=== PATIENT | female | born 1950 | race Caucasian/White ===

== ENCOUNTER 2016-11-29 18:40 | Emergency (ER) | payer MEDICARE ==
--- NOTE | ~2016-11-29 | EKG ---
PATIENT: ERIC VICK UNIT #: [id number] Ventricular Rate: 52 BPM Atrial Rate: 52 BPM P-R Interval: 144 ms QRS Duration: 88 ms Q-T Interval: 426 ms QTC Calculation(Bezet): 396 ms P [place]: 42 degrees Calculated R [place]: 17 degrees Calculated T [place]: 22 degrees Diagnosis Line: Sinus bradycardia Diagnosis Line: Otherwise normal ECG Diagnosis Line: When compared with ECG of 07-MAR-2016 14:11, Diagnosis Line: No significant change was found Diagnosis Line: Confirmed by TOMAS CLAYTON MD ([id number]) on 11/29/2016 Diagnosis Line: 10:49:57 PM INTERPRETING MD: MATILDE TRAVIS
--- NOTE | ~2016-11-29 | CR72 ---
[facility] A Service of [facility] RADIOLOGY TEXT RESULTS PATIENT: ERIC VICK LOCATION: [facility] : 48 UNIT #: [id number] AGE: [address]: Sharita Butler SEX: F ORDER DR: [id number] [facility] [address] [place], [place] [address] [id number] E MR#: [id number] Acc #: [id number] NAME: ERIC VICK. : 1950 SEX: F STUDY DATE/TIME: 11/29/2016 18:59 UNIT: [facility] ROOM: STUDY DESCRIPTION: CR Chest Single View Portable Attending Physician: Sharita Butler Pa-C Ordering Physician: Cesar Cartagena M.D. Primary Care Physician: Tootie Hannah M.D. MEDICAL IMAGING REPORT This report is preliminary unless electronic signature is present EXAM Single view chest, portable. HISTORY History of asthma, bronchitis, short of air since 11/29/2016. History of left lung cancer. COMMENT Single frontal portable view chest timed 18:59, 11/29/2016. COMPARISON Compared to 03/11/2016. Comparison also made to 03/09/2016. FINDINGS The patient has moderate cardiac silhouette enlargement which is increased from previous. There are areas of apparent bilateral parenchymal scarring and underlying chronic lung disease. There is probably some worsening in interstitial markings since prior and this raises concern for superimposed interstitial edema possibly in the setting of mild volume overload. It is apparent on the film from 03/11/2016, that the patient was in congestive failure with pleural effusions at that time. Clinical correlation and follow up is therefore suggested. If more information is needed with respect to assess the patient's lung cancer, follow-up CT chest would be indicated. IMPRESSION 1. There is moderate globular cardiac silhouette enlargement and there are changes consistent with underlying chronic lung disease. Comparison is made back to multiple plain films from last March and on review of those films, it appears that there is some increased interstitial markings from baseline, and it is apparent that the patient has previously been in congestive failure. Please correlate for any clinical concern. The patient is currently experiencing mild STS. [facility] A Service of [facility] RADIOLOGY TEXT RESULTS PATIENT: ERIC VICK [id number] 48 UNIT #: [id number] AGE: [address]: Sharita Butler SEX: F ORDER DR: volume overload given the increased interstitial markings. Atypical infectious disease can result in a similar appearance. Clinical correlation and follow up is suggested. No pneumothorax. No obvious pleural effusion at this time. 2. If restaging of the patient's lung cancer is indicated, would recommend the patient undergo follow-up chest CT. Dictated by... Natalia Shearer M.D. THIS IS AN ELECTRONICALLY VERIFIED REPORT Natalia Shearer M.D. at 11/29/2016 10:55 PM BARAK/hattie TD: 11/29/2016 21:49 JOB #: [id number] MEDICAL IMAGING REPORT Page 1 of 1 COPY
[~2016-11-29 18:40] MED LIST: ADVAIR 100-501 EACH IH; ALBUTEROL17 GM INH; ALENDRONATE SOD70 M1 PO; ALPRAZOLAM PO; ASPIRIN PO; BACLOFEN10 MG PO; BENTYL20 M1 PO; BONIVA150 MG PO; BREO ELLIPTA I1 EACH IH; BUSPAR PO; BUSPIRONE HCL10 M1 PO; BUSPIRONE HCL10 MG PO; CHOLESTEROL MED PO; CIPRO PO; CITRACAL PLUS T1 TAB PO; CLOPIDOGREL75 MG PO; CRESTOR PO; CYANOCOBALAM1000 MCG PO; DESYREL100 MG PO; DIFLUCAN PO; DUONEB 2.5-0.5 M3 ML; ESCITALOPRAM OX20 MG PO; FERRO-TIME325 MG PO; FERROUS GL325 ( 37.5 PO; FLAGYL PO; FLEXERIL PO; FLEXERIL10 M1 PO; FLOMAX0.4 M1 PO; FOSAMAX70 MG PO; GABAPENTIN300 M2 PO; GLUCOPHAGE XR500 MG PO; GLUCOPHAGE500 M1 PO; HYDROCHLOROTHIA25 MG PO; HYDROCODONE/APA1 T16 PO; IMDUR PO; IMDUR-ER30 M1 DOB; IMDUR-ER30 M1 PO; IMDUR-ER30 MG PO; LEVAQUIN PO; LEVAQUIN750 MG PO; LEVOTHYROXINE137 MCG PO; LEVOXYL0.137 MG DOB; LEVOXYL0.137 MG PO; LEXAPRO PO; LEXAPRO20 MG PO; LIORESAL10 MG PO; LIPITOR PO; LISINOPRIL PO; LISINOPRIL10 MG PO; LISINOPRIL20 MG PO; LISINOPRIL30 MG PO; LOMOTIL TABLET1 TAB PO; LOPRESSOR PO; LORTAB 10-3251 EACH PO; LORTAB 10/325 PO; LORTAB 7.5-5001 TAB PO; MACROBID 100 M100 MG PO; MEDROL DOSEPAK4 MG PO; MELATONIN3 M1 PO; METHYLPREDNISOLONE; MOTRIN600 M2 PO; MULTI VITAMIN1 EACH PO; MULTI-VITAMIN1 EAC1 PO; MUPIROCIN0.9 GM EXT; N; NAPROXEN PO; NEURONTIN800 MG PO; NICODERM CQ1 EACH TOP; NITROGYLCERIN SUBLINGUAL; NITROSTAT0.4 MG SL; NORCO 10/325 TA1 TAB PO; NORVASC10 MG PO; OXYGEN; PERCOCET5/325 PO; PHENERGAN PO; PLAVIX PO; PREDNISONE PO; PROTONIX PO; SYNTHROID PO; SYNTHROID137 MCG PO; TOPROL XL 50 MG50 MG PO; TOPROL XL PO; TOPROL XL50 MG PO; TRAZODONE HCL100 MG PO; TRICOR PO; TYLOX1 CAP 5/50 PO; VITAMIN B122500 MCG PO; ZOCOR PO; ZOFRAN ODT4 MG PO
[2016-11-29 19:06] LABS: BASOPHIL# 0.2 X10e3 (0-0.3); BASOPHIL% 1.6 % (0-2.5); EOSINOPHIL# 0.2 X10e3 (0-0.7); HEMATOCRIT 31.7 % (35.0-45.0); HEMOGLOBIN 9.6 gm/dL (12.0-16.0); LYMPHOCYTE# 2.2 X10e3 (1.0-3.5); LYMPHOCYTE% 20.6 % (17.0-45.0); MEAN CELL VOLUME 83.3 FL (83-96); MEAN CORPUSCULAR HEMOGLOBIN 25.3 PG (28-34); MEAN CORPUSCULAR HGB CONC 30.4 g/dL (30-36); MEAN PLATELET VOLUME 7.6 FL (6.5-11.5); MONOCYTE# 0.8 X10e3 (0-1.0); MONOCYTE% 7.7 % (3.0-12.0); NEUTROPHIL# 7.3 X10e3 (1.5-7.1); NEUTROPHIL% 68.1 % (40-75); PLATELET COUNT 360 X10e3 (140-420); RED BLOOD COUNT 3.81 X10e (3.90-5.30); RED CELL DISTRIBUTION WIDTH 17.1 % (11.0-15.5); WHITE BLOOD COUNT 10.8 X10e3 (4.0-10.5)
[2016-11-29 19:08] LABS: DIFF IND NO
[2016-11-29 19:16] LABS: POC - CKMB 2.3 ng/mL (0.0-7.9); POC - TROPONIN <0.05 ng/mL (<=0.05)
[2016-11-29 19:27] LABS: ALBUMIN SERUM 3.5 g/dL (3.5-5.0); BILIRUBIN, DIRECT 0.2 mg/dL (0.0-0.2); BILIRUBIN,INDIRECT 0.8 mg/dL (0.0-0.9); BUN/CREATININE RATIO 26.66; CALCIUM SERUM 10.1 mg/dL (8.4-10.2); CREATININE SERUM 0.6 mg/dL (0.6-1.4); GLOM FILT RATE Estimated 93.7 mL/min (>60); PROTEIN TOTAL SERUM 6.3 g/dL (6.0-8.3)
== END 2016-11-29 21:00 | disposition home or self-care (01) ==
LOC: CED 18:40
PROVIDERS: Physician Assistant
DX: J18.9 Pneumonia, unspecified organism (principal); J44.9 Chronic obstructive pulmonary disease, unspecified; I10 Essential (primary) hypertension; Z85.118 Personal history of other malignant neoplasm of bronchus and lung; Z79.899 Other long term (current) drug therapy; Z87.891 Personal history of nicotine dependence
CPT/HCPCS: 36415; 71010; 80048; 80076; 82553; 84484; 85025; 93005; 94640; 96365; 96375; 99284; J0696; J2930

== ENCOUNTER 2017-01-22 16:01 | Emergency (ER) | payer MEDICARE ==
--- NOTE | ~2017-01-22 | CR72 ---
[facility] A Service of [facility] RADIOLOGY TEXT RESULTS PATIENT: ERIC VICK LOCATION: [facility] : 48 UNIT #: [id number] AGE: [address]: Katherine Bruno MD SEX: F ORDER DR: [id number] [facility] [address] [place], [place] [address] [id number] E MR#: [id number] Acc #: [id number] NAME: ERIC VICK. : 1950 SEX: F STUDY DATE/TIME: 01/22/2017 16:49 UNIT: [facility] ROOM: STUDY DESCRIPTION: CR Chest Single View Portable Attending Physician: Katherine Bruno M.D. Ordering Physician: Cody Feng D.O. Primary Care Physician: Tootie Hannah M.D. MEDICAL IMAGING REPORT This report is preliminary unless electronic signature is present EXAM Portable chest INDICATIONS Shortness of breath today. COMPARISON 11/29/2016 FINDINGS Stable chronic interstitial opacities. Heart size stable. No definite acute infiltrate. IMPRESSION Stable chronic-appearing interstitial opacities. No definite acute infiltrate. Dictated by... César Mcguire M.D. THIS IS AN ELECTRONICALLY VERIFIED REPORT César Mcguire M.D. at 01/23/2017 10:06 AM ARS/shaan TD: 01/23/2017 04:17 JOB #: [id number] MEDICAL IMAGING REPORT Page 1 of 1 COPY
--- NOTE | ~2017-01-22 | EKG ---
PATIENT: ERIC VICK UNIT #: [id number] Ventricular Rate: 71 BPM Atrial Rate: 71 BPM P-R Interval: 144 ms QRS Duration: 82 ms Q-T Interval: 354 ms QTC Calculation(Bezet): 384 ms P [place]: 46 degrees Calculated R [place]: 19 degrees Calculated T [place]: 1 degrees Diagnosis Line: Normal sinus rhythm with sinus arrhythmia Diagnosis Line: Early R Wave Transition Diagnosis Line: Borderline ECG Diagnosis Line: When compared with ECG of 29-NOV-2016 18:29, Diagnosis Line: No significant change was found Diagnosis Line: Confirmed by RUPINDER VELASCO MD ([id number]) on Diagnosis Line: 01/22/2017 10:22:59 PM INTERPRETING MD: KAREN
--- NOTE | ~2017-01-22 | CT71 ---
[facility] A Service [facility] RADIOLOGY TEXT RESULTS PATIENT: ERIC VICK LOCATION: [facility] : 48 UNIT #: [id number] AGE: [address]: Katherine Bruno MD SEX: F ORDER DR: [id number] [place] [id number] [facility] [place], [place] [address] [id number] E MR#: [id number] Acc #: [id number] NAME: ERIC VICK. : 1950 SEX: F STUDY DATE/TIME: 01/22/2017 17:27 UNIT: [facility] ROOM: STUDY DESCRIPTION: CT Head Wo Contrast Attending Physician: Katherine Bruno M.D. Ordering Physician: Cody Feng D.O. Primary Care Physician: Tootie Hannah M.D. MEDICAL IMAGING REPORT This report is preliminary unless electronic signature is present EXAM CT of the head without contrast INDICATION New onset of confusion starting today. The patient was found down. TECHNIQUE Axial CT images were obtained from vertex of the skull through the skull base. No intravenous contrast material was administered. This CT exam was performed with one or more of the following radiation dose reduction techniques: automatic exposure control, adjustment of mA and/or kV according to patient size, and iterative reconstruction. FINDINGS No acute intracranial hemorrhage is identified. Examination is degraded by some motion artifact but I do not see any focal areas of decreased attenuation. There is no midline shift or mass effect. Please note exam is significantly degraded by motion artifact. There is partial opacification of the ethmoid sinuses. The remainder of the visualized paranasal sinuses and mastoid air cells appear clear. No aggressive osseous abnormalities are seen. No focal soft tissue abnormalities are seen. IMPRESSION 1. Exam is significantly degraded by motion artifact but no acute intracranial process is identified. Specifically, there is no evidence of acute hemorrhage, mass lesion or acute infarct. 2. Sinus inflammatory changes as noted above. Dictated by... Jessica Nance M.D. [facility] A Service of [facility] RADIOLOGY TEXT RESULTS PATIENT: ERIC VICK LOCATION: [facility] : 48 UNIT #: [id number] AGE: [address]: Katherine Bruno MD SEX: F ORDER DR: THIS IS AN ELECTRONICALLY VERIFIED REPORT Jessica Nance M.D. at 01/23/2017 12:55 PM BENITO/vinod TD: 01/23/2017 08:27 JOB #: [id number] MEDICAL IMAGING REPORT Page 1 of 1 COPY
[2017-01-22 16:39] LABS: URINE SOURCE CATH
[2017-01-22 16:50] LABS: URINE APPEARANCE CLEAR; URINE BILIRUBIN NEG (NEG); URINE BLOOD NEG (NEG); URINE COLOR YELLOW; URINE GLUCOSE NEG (NEG); URINE KETONE NEG (NEG); URINE LEUKOCYTE ESTERASE NEG (NEG); URINE NITRATE NEG (NEG); URINE PH 5.5 (5-8); URINE PROTEIN NEG (NEG); URINE SPECIFIC GRAVITY 1.019 (1.003-1.035); URINE UROBILINOGEN 0.2 MG/DL (NEG)
[2017-01-22 16:57] LABS: AMPHETAMINE NEG (NEG); BARBITURATES NEG (NEG); BENZODIAZEPINES NEG (NEG); COCAINE NEG (NEG); CULTURE INDICATED? NO; MARIJUANA NEG (NEG); OPIATES POS (NEG); TRICYCLIC ANTIDEPRESSANTS NEG (NEG); U METHADONE NEG (NEG)
[2017-01-22 17:02] LABS: ARTERIAL BLOOD GAS pH 7.346 (7.350-7.450)
[2017-01-22 17:03] LABS: ARTERIAL BLD GAS O2 SATURATION 95.1 % (90.0-100.0); ARTERIAL BLOOD GAS ALLEN TEST NORMAL; ARTERIAL BLOOD GAS ART SITE RIGHT RADIAL; ARTERIAL BLOOD GAS CARBOXY HB 7.7 %sat (0.0-9.0); ARTERIAL BLOOD GAS DELIVERY NASAL CANNULA; ARTERIAL BLOOD GAS HCO3 28.7 mmol/L; ARTERIAL BLOOD GAS MET HB 3.4 %sat (0.0-2.0); ARTERIAL BLOOD GAS PCO2 52.5 mmHg (35.0-45.0); ARTERIAL BLOOD GAS PO2 89.3 mmHg (80.0-100); ARTERIAL DRAW? YES
[2017-01-22 17:38] LABS: BASOPHIL# 0.1 X10e3 (0-0.3); BASOPHIL% 0.8 % (0-2.5); EOSINOPHIL# 0.1 X10e3 (0-0.7); EOSINOPHIL% 0.4 % (0.0-7.0); HEMATOCRIT 36.1 % (35.0-45.0); HEMOGLOBIN 11.1 gm/dL (12.0-16.0); LYMPHOCYTE# 2.4 X10e3 (1.0-3.5); LYMPHOCYTE% 17.5 % (17.0-45.0); MEAN CELL VOLUME 81.6 FL (83-96); MEAN CORPUSCULAR HEMOGLOBIN 25.1 PG (28-34); MEAN CORPUSCULAR HGB CONC 30.7 g/dL (30-36); MEAN PLATELET VOLUME 8.5 FL (6.5-11.5); MONOCYTE# 1.2 X10e3 (0-1.0); MONOCYTE% 8.6 % (3.0-12.0); NEUTROPHIL# 10.1 X10e3 (1.5-7.1); NEUTROPHIL% 72.7 % (40-75); PLATELET COUNT 375 X10e3 (140-420); RED BLOOD COUNT 4.43 X10e (3.90-5.30); RED CELL DISTRIBUTION WIDTH 20.1 % (11.0-15.5); WHITE BLOOD COUNT 13.9 X10e3 (4.0-10.5)
[2017-01-22 17:39] LABS: DIFF IND NO
[2017-01-22 17:48] LABS: PARTIAL THROMBOPLASTIN TIME 23.7 SECONDS (23.5-31.3); PROTHROMBIN TIME (PATIENT) 10.7 SECONDS (10.0-11.7)
[2017-01-22 18:04] LABS: ALBUMIN SERUM 3.5 g/dL (3.5-5.0); ALKALINE PHOSPHATASE 59 U/L (32-92); ALT (SGPT) 41 U/L (10-40); AST (SGOT) 67 U/L (10-42); BILIRUBIN,TOTAL 0.3 mg/dL (0.2-2.0); BLOOD UREA NITROGEN 17 mg/dL (9-23); BUN/CREATININE RATIO 28.33; CALCIUM SERUM 11.1 mg/dL (8.4-10.2); CARBON DIOXIDE 29 mmol/L (22-31); CHLORIDE 108 mmol/L (100-111); CREATININE SERUM 0.6 mg/dL (0.6-1.4); GLOM FILT RATE Estimated 93.7 mL/min (>60); GLUCOSE FASTING 101 mg/dL (70-110); POTASSIUM 4.6 mmol/L (3.5-5.1); PROTEIN TOTAL SERUM 6.5 g/dL (6.0-8.3); SALICYLATE <4.0 mg/dL; SODIUM 140 mmol/L (135-145)
[2017-01-22 18:05] LABS: ACETAMINOPHEN <10 ug/mL; ALCOHOL BLOOD <5 mg/dL (0); BILIRUBIN, DIRECT <0.1 mg/dL (0.0-0.2); BILIRUBIN,INDIRECT 0.2 mg/dL (0.0-0.9)
== END 2017-01-22 22:14 | disposition home or self-care (01) ==
LOC: CED 16:01
PROVIDERS: Emergency Medicine
DX: T40.601A Poisoning by unspecified narcotics, accidental (unintentional), initial encounter (principal); I10 Essential (primary) hypertension; J45.909 Unspecified asthma, uncomplicated; J44.9 Chronic obstructive pulmonary disease, unspecified; F17.200 Nicotine dependence, unspecified, uncomplicated; Z90.710 Acquired absence of both cervix and uterus; Z79.899 Other long term (current) drug therapy
CPT/HCPCS: 36415; 36600; 51702; 70450; 71010; 80048; 80076; 80307; 81003; 82140; 82803; 82947; 83605; 85025; 85610; 85730; 87040; 93005; 96361; 96374; 99285; G0480; J2310

== ENCOUNTER 2017-03-23 20:33 | Inpatient (IN) | payer MEDICARE ==
[~2017-03-23] VITALS: Ht 162.6 cm; Wt 59.8 kg
--- NOTE | ~2017-03-23 | CR72 ---
[facility] A Service of [facility] RADIOLOGY TEXT RESULTS PATIENT: ERIC VICK LOCATION: [facility] 571-01 : 48 UNIT #: [id number] AGE: [address]: Nay Galindo MD SEX: F ORDER DR: [id number] [facility] [address] [place], [place] [address] [id number] I MR#: [id number] Acc #: [id number] NAME: ERIC VICK : 1950 SEX: F STUDY DATE/TIME: 03/25/2017 4:39 [facility]IT: [facility] ROOM: [facility] STUDY DESCRIPTION: CR Chest Single View Portable Attending Physician: Nay Galindo M.D. Ordering Physician: Francis Stewart M.D. Primary Care Physician: Tootie Hannah M.D. MEDICAL IMAGING REPORT This report is preliminary unless electronic signature is present EXAM Chest x-ray, 03/25/2017. HISTORY 66-year-old female hospital inpatient with a history of respiratory failure, hypotension. TECHNIQUE AP portable chest x-ray. FINDINGS The exam shows COPD with scattered fibrotic scarring in both lungs. Small ill-defined nodular opacity lateral right midlung, also present on chest CT in 2013. Mild cardiomegaly with enlarged central pulmonary arteries. No visible acute pulmonary infiltrate, pneumothorax, or pleural effusion. IMPRESSION Stable portable chest radiograph, unchanged since yesterday. Dictated by... Nico Strange M.D. THIS IS AN ELECTRONICALLY VERIFIED REPORT Nico Strange M.D. at 03/25/2017 9:53 PM RGW/chantale TD: 03/25/2017 10:13 JOB #: [id number] MEDICAL IMAGING REPORT Page 1 of 1 COPY
--- NOTE | ~2017-03-23 | EKG ---
PATIENT: ERIC VICK UNIT #: [id number] Ventricular Rate: 98 BPM Atrial Rate: 98 BPM P-R Interval: 130 ms QRS Duration: 90 ms Q-T Interval: 322 ms QTC Calculation(Bezet): 411 ms P [place]: 71 degrees Calculated R [place]: 50 degrees Calculated T [place]: 17 degrees Diagnosis Line: Normal sinus rhythm Diagnosis Line: Nonspecific ST and T wave abnormality Diagnosis Line: Abnormal ECG Diagnosis Line: When compared with ECG of 23-MAR-2017 20:36, Diagnosis Line: (unconfirmed) Diagnosis Line: Nonspecific T wave abnormality has replaced Diagnosis Line: inverted T waves in Anterior leads Diagnosis Line: QT has shortened Diagnosis Line: Confirmed by TOMAS CLAYTON MD ([id number]) on 03/29/2017 Diagnosis Line: 10:13:52 PM INTERPRETING MD: MATILDE TRAVIS
--- NOTE | ~2017-03-23 | CR72 ---
[facility] A Service of [facility] RADIOLOGY TEXT RESULTS PATIENT: ERIC VICK LOCATION: [facility] : 48 UNIT #: [id number] AGE: [address]: Nay Galindo MD SEX: F ORDER DR: [id number] [facility] [address] [place], [place] [address] [id number] I MR#: [id number] Acc #: [id number] NAME: ERIC VICK : 1950 SEX: F STUDY DATE/TIME: 03/24/2017 14:44 UNIT: [facility] ROOM: [facility] STUDY DESCRIPTION: CR Chest Single View Portable Attending Physician: Gladis Kim M.D. Ordering Physician: Nay Galindo M.D. Primary Care Physician: Tootie Hannah M.D. MEDICAL IMAGING REPORT This report is preliminary unless electronic signature is present EXAMINATION AP portable chest. DATE 03/24/2017 HISTORY 66-year-old female with shortness of breath and bilateral rhonchi and weakness for 1 day. Diabetes. Hypertension. COPD. COMPARISON AP, portable chest, 03/23/2017. FINDINGS Emphysematous changes are present. Interstitial thickening is seen throughout both lungs. No definite acute airspace disease is identified. Stable cardiac enlargement. No pleural effusion or pneumothorax is seen. Old right rib fractures. No pleural effusion or pneumothorax. Approximately 1.2 cm nodular density within the periphery of the right mid lung appears unchanged since 04/05/2015, and most in keeping with benign finding. Previous report also states it has been stable since 12/27/2013, as well. Previous report states it has been biopsied. IMPRESSION 1. Emphysema. 2. No acute chest findings. 3. Stable cardiac enlargement. 4. Nodular density in the periphery of the right midlung has been stable for over 2 years suggesting benign etiology. According to previous report, this has undergone previous biopsy. Please correlate with pathology findings. [facility] A Service of [facility] RADIOLOGY TEXT RESULTS PATIENT: ERIC VICK LOCATION: [facility] 571-01 : 48 UNIT #: [id number] AGE: [address]: Nay Galindo MD SEX: F ORDER DR: Dictated by... Tami Echevarria M.D. THIS IS AN ELECTRONICALLY VERIFIED REPORT Tami Echevarria M.D. at 03/25/2017 2:02 PM FERNANDA/hattie TD: 03/24/2017 18:02 JOB #: [id number] MEDICAL IMAGING REPORT Page 1 of 1 COPY
--- NOTE | ~2017-03-23 | EKG ---
PATIENT: ERIC VICK UNIT #: [id number] Ventricular Rate: 76 BPM Atrial Rate: 76 BPM P-R Interval: 132 ms QRS Duration: 92 ms Q-T Interval: 436 ms QTC Calculation(Bezet): 490 ms P [place]: 67 degrees Calculated R [place]: 50 degrees Calculated T [place]: -47 degrees Diagnosis Line: Normal sinus rhythm Diagnosis Line: Nonspecific ST and T wave abnormality Diagnosis Line: Abnormal ECG Diagnosis Line: No previous ECGs available Diagnosis Line: Confirmed by RUPINDER VELASCO MD ([id number]) on Diagnosis Line: 03/25/2017 4:45:21 PM INTERPRETING MD: KAREN
--- NOTE | ~2017-03-23 | CT57 ---
[facility] A Service of [facility] RADIOLOGY TEXT RESULTS PATIENT: ERIC VICK LOCATION: [facility] 571-01 : 48 UNIT #: [id number] AGE: [address]: Melisa Felder MD SEX: F ORDER DR: [id number] [facility] [address] [place], [place] [address] [id number] I MR#: [id number] Acc #: [id number] NAME: ERIC VICK : 1950 SEX: F STUDY DATE/TIME: 03/26/2017 7:49 UNIT: [facility] ROOM: [facility] STUDY DESCRIPTION: CT Chest Wo Cont Attending Physician: Melisa Felder M.D. Ordering Physician: Francis Stewart M.D. Primary Care Physician: Tootie Hannah M.D. MEDICAL IMAGING REPORT This report is preliminary unless electronic signature is present EXAM CT scan of the chest without contrast. INDICATIONS Followup lung nodule from 3 months ago. Cough, shortness of air for 2 days. COMPARISON STUDY 03/08/2016 and 12/27/2013. TECHNIQUE Axial 2 mm were obtained through the chest without contrast and sagittal and coronal reconstructions were generated. This CT exam was performed with one or more of the following radiation dose reduction techniques: automatic exposure control, adjustment of mA and/or kV according to patient size, and iterative reconstruction. FINDINGS There is stable posterior atelectasis in the left base. There is mild interstitial prominence throughout the lungs and there are emphysematous changes in the upper lobes. In the right lung laterally, in what I believe is the right upper lobe, is a nodule that is about 16 x 11 mm in size. It is either stable or minimally increased in size from 03/08/2016. Today's study is 2 mm thick images and the previous study of 5 mm thick images. Slightly above that area, probably within the right upper lobe, is a 6 mm noncalcified nodule that was faintly visible on the prior study and is it seems it is certainly more conspicuous but that could be due to the thin image slices. There is also a cluster of 4-5 small nodule measuring 5 mm or less in the same region of the lung more posteriorly that were not visible on the previous study. There is node anterior to the trachea on image 33 that is mildly prominent. This is about 12 mm in diameter. This seems to be about 7 mm in diameter on the previous study and, down near the mercy, there is another node that is about 12 mm in STS. [facility] A Service of [facility] RADIOLOGY TEXT RESULTS PATIENT: ERIC VICK LOCATION: [facility] 571-01 : 46 UNIT #: [id number] AGE: [address]: Melisa Felder MD SEX: F ORDER DR: diameter and previously it appeared to be about 10 mm in diameter. No hilar adenopathy is suggested. The visualized portions of the upper abdomen show previous cholecystectomy and are otherwise unremarkable. The bones are unremarkable. The largest right upper lobe nodule has been previously biopsied back in January of 2014 and back in December of 2013, it is seen to measure about 15 mm in maximum dimension. IMPRESSION 1. In the right lung, in the lower right upper lobe, there is a lobular nodule that has increased in conspicuity and slightly in size since 2013. It was biopsied back in 2013. It is now about 16-17 x 11 mm size which is slightly larger than March 08, 2016 and significantly larger than 12/27/2013. Slightly higher in the right upper lobe, there is a 6 mm nodule that is slightly irregular that is much more conspicuous than on the older study from 03/21. Please note that today's study was done with 2 mm thick images and the previous study had 5 mm thick images so that could account for the density but there are also a cluster of 4-5 nodules measuring 5 mm or less in the same general region that were not not visible on the prior studies. 2. 2 nodes that are borderline in size in the mediastinum in front of the trachea and in front of the mercy have increased slightly in size since 03/08/2016. Correlation with prior pathology results certainly recommended but I would consider a PET scan to evaluate the activity of this larger nodule and the lymph nodes. The smaller nodules are probably too small for detection or evaluation with PET scan imaging. Those will need at least followup CT scan in 6 months if no surgical intervention is performed on the larger nodule. Dictated by... Lawrence Mario M.D. THIS IS AN ELECTRONICALLY VERIFIED REPORT Lawrence Mario M.D. at 03/26/2017 2:41 PM ALVARO/debbi TD: 03/26/2017 12:08 JOB #: [id number] MEDICAL IMAGING REPORT Page 1 of 1 COPY
--- NOTE | ~2017-03-23 | EKG ---
PATIENT: ERIC VICK UNIT #: [id number] Ventricular Rate: 91 BPM Atrial Rate: 91 BPM P-R Interval: 172 ms QRS Duration: 84 ms Q-T Interval: 350 ms QTC Calculation(Bezet): [address]: 65 degrees Calculated R [place]: 26 degrees Calculated T [place]: 2 degrees Diagnosis Line: Normal sinus rhythm Diagnosis Line: Nonspecific ST abnormality Diagnosis Line: Abnormal ECG Diagnosis Line: When compared with ECG of 25-MAR-2017 07:09, Diagnosis Line: No significant change was found Diagnosis Line: Confirmed by TOMAS CLAYTON MD ([id number]) on 03/26/2017 Diagnosis Line: 10:09:51 PM INTERPRETING MD: MATILDE TRAVIS
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
--- NOTE | ~2017-03-23 | CR72 ---
[facility] A Service of [facility] RADIOLOGY TEXT RESULTS PATIENT: ERIC VICK LOCATION: [facility] 571- : 48 UNIT #: [id number] AGE: [address]: Nay Galindo MD SEX: F ORDER DR: [id number] [facility] [address] [facility] [place], [place] [address] [id number] I MR#: [id number] Acc #: [id number] NAME: ERIC VICK : 1950 SEX: F STUDY DATE/TIME: 03/24/2017 17:50 UNIT: [facility] ROOM: [facility] STUDY DESCRIPTION: CR Chest Single View Portable Attending Physician: Gladis Kim M.D. Ordering Physician: Francis Stewart M.D. Primary Care Physician: Tootie Hannah M.D. MEDICAL IMAGING REPORT This report is preliminary unless electronic signature is present EXAM AP portable chest DATE 03/24/2017 HISTORY 66-year-old female with shortness of breath and weakness for 1 day. Diabetes. Asthma. COPD. History of smoking. COMPARISON AP portable chest 03/24/2017 at 14:44. FINDINGS Emphysematous changes are present. No acute airspace disease is identified. Questionable mild atelectasis or infiltrate in the medial left lower lobe, retrocardiac distribution. Stable cardiac enlargement. Calcified granulomatous changes. Nodular density the periphery the right mid lung, unchanged from prior examinations, and, according to previous provided history, has undergone previous biopsy. ORIF changes of the right elbow. Degenerative changes of both shoulders, right greater than left. Old right rib fractures. IMPRESSION 1. Questionable mild atelectasis or infiltrate in the medial left lung base. No dense lung consolidations. 2. Peripheral nodular density the right mid lung, which, according to history has undergone previous biopsy. Please correlate with those results. 3. Emphysema. 4. Stable cardiomegaly. 5. No visible pneumothorax. [facility] A Service [facility] RADIOLOGY TEXT RESULTS PATIENT: ERIC VICK LOCATION: [facility] 571-01 : 48 UNIT #: [id number] AGE: [address]: Nay Galindo MD SEX: F ORDER DR: Dictated by... Tami Echevarria M.D. THIS IS AN ELECTRONICALLY VERIFIED REPORT Tami Echevarria M.D. at 03/25/2017 2:02 PM FERNANDA/chino TD: 03/25/2017 00:19 JOB #: [id number] MEDICAL IMAGING REPORT Page 1 of 1 COPY
--- NOTE | ~2017-03-23 | CO ---
Unit #: [id number] #: [id number] Patient: ERIC VICK [id number] [address] [place], [place] [address] [id number] I MR#: [id number] NAME: ERIC VICK ROOM: 571 Age: 66 Sex: F Admission Date: 03/24/2017 : 1950 Attending Physician: Nay Galindo M.D. Primary Care Physician: Tootie Hannah M.D. CONSULTATION REPORT REASON FOR CONSULTATION Respiratory failure. CHIEF COMPLAINT Shortness of breath. HISTORY OF PRESENT ILLNESS This patient basically is known to me from previous admissions. Has a past medical history of COPD. Presents with the complaint of fall, hypotension at home. A 66-year-old female. Diabetes mellitus, hypertension, hypothyroidism, coronary artery disease, anxiety, depression. Had a fall and has been found to be in acute renal failure. Admitted with impression of acute kidney injury, rhabdomyolysis, hypotension, hypothyroidism and currently complaining of shortness of breath. She denies any nausea, vomiting, diarrhea. PAST MEDICAL HISTORY As described above. SOCIAL HISTORY Positive smoking. No alcohol. No drug abuse. FAMILY HISTORY None, as per records. MEDICATIONS As per MAR. Has been reviewed. ALLERGIES Allergies have been reviewed. REVIEW OF SYSTEMS Positive pallor. No edema. No cyanosis. No jaundice. Rest is as per history of present illness. The rest of a 12-point review of systems has been reviewed and is negative. PHYSICAL EXAMINATION VITAL SIGNS: Temperature 98, pulse rate 70, respirations 12, blood pressure 110/70. NEUROLOGIC: Awake, alert and oriented. No neuro deficits. HEENT: PERRLA. EOMI. NECK: Supple. No JVD. CHEST: Bilateral air entry. Bilateral mild rhonchi. GI: Nontender. Soft. Bowel sounds positive. Unit #: [id number] #: [id number] Patient: ERIC VICK EXTREMITIES: No edema. SKIN: No rashes, no ulcer. LYMPHATIC: No lymphadenopathy. DIAGNOSTIC STUDIES Labs and imaging have been reviewed. ASSESSMENT 1. Acute hypoxic respiratory failure. 2. Acute exacerbation of COPD. 3. Non-ST elevation MN. 4. Acute kidney injury. 5. Rhabdomyolysis. 6. Critically ill patient. PLAN Plan is to continue the patient on IV steroids, IV antibiotics, bronchodilator. Chest x-ray. Will repeat blood gas. Patient will need BiPAP therapy. Please see orders for detailed plan. Thank you very much for this consultation. Dictated by... Ventura Hawkins TD: 03/25/2017 09:04 JOB #: [id number] CONSULTATION REPORT Page 1 of 1 X Francis Stewart MD X CONSULTATION REPORT
--- NOTE | ~2017-03-23 | DS ---
Unit #: [id number] #: [id number] Patient: ERIC VICK [id number] [address] [place], [place] [address] [id number] I MR#: [id number] NAME: ERIC VICK ROOM: 571 Age: 66 Sex: F Admission Date: 03/24/2017 : 1950 Discharge Date: 03/30/2017 Attending Physician: Melisa Felder M.D. Primary Care Physician: Tootie Hannah M.D. DISCHARGE SUMMARY PRINCIPAL DIAGNOSES 1. Acute on chronic hypoxic, hypercapnic respiratory failure maintained on six liters of oxygen per nasal cannula. Please note, this is patient's baseline dose. 2. Non-ST segment elevation myocardial infarction. 3. Haemophilus influenzae type III bronchitis. 4. Acute kidney injury, prerenal. 5. Acute rhabdomyolysis. 6. Acute exacerbation of chronic obstructive pulmonary disease. 7. Right lung nodule with significant concern for underlying carcinoma. Patient is refusing lung biopsy. 8. Hypertension, controlled. 9. Normocytic anemia. 10. Hyperlipidemia. 11. Oropharyngeal dysphagia. 12. Chronic diastolic congestive heart failure with ejection fraction greater than 55%. 13. Hypothyroidism. 14. Mild protein malnutrition. 15. Physical deconditioning for which patient is refusing subacute rehab. 16. Gastroesophageal reflux disease. 17. Anxiety and depression. 18. Tobaccoism. 19. Hypotension. 20. History of vitamin B12 deficiency. CONSULTANTS 1. Dr. Karma Guillermo, Pulmonology. 2. Dr. Madrid, Cardiology. PROCEDURES 1. Left-sided heart catheterization on March 26, 2017, with a normal left main. Patient had 20% stenosis of the proximal and mid LAD. First diagonal was diffusely diseased 70-80% and was noted to be a small vessel. Left circumflex had 10% stenosis. RCA proximally was 50% stenosed. Mid portion of the RCA had a patent stent with perhaps 30% in-stent stenosis. Distal RCA had 20% stenosis. Left ventricular end-diastolic pressure of 6. 2. Video swallow study on March 27, 2017, with noted oropharyngeal dysphagia. 3. CT of the head without contrast on March 23, 2017, with no acute findings. 4. Chest x-ray on March 23, 2017, with stable cardiac enlargement. Lung hyperinflation and chronic interstitial thickening is noted. Unit #: [id number] #: [id number] Patient: ERIC VICK Old right rib fracture noted. 5. CT of the chest on March 26, 2017, with a right upper lobe nodule increased in conspicuity and slightly increased in size since 2013. It is now 16-17 x 11 mm. There is also a 6 mm nodule in the higher portion of the right upper lobe noted as well. Two lymph nodes are borderline in size in the mediastinum. CLINICAL HISTORY AND HOSPITAL COURSE Ms. Vick is a 66-year-old female who presented to the emergency department after a fall at home. She was found to be hypotensive in the emergency department. She was found to be significantly wheezy on exam. Initial troponin upon presentation was also elevated at 0.97. Patient was subsequently admitted. In regards to patient's hypotension, this was found to be in conjunction with acute kidney injury. She was placed on IV hydration and hypotension and acute kidney injury resolved. In fact, throughout the hospitalization she became increasingly hypertensive, and medications had to continue to be adjusted. On the day of discharge, her systolic is running in the 150s, but she just had a change in dose of medication yesterday, and thus we are going to keep her on these meds and follow up blood pressure on an outpatient basis. In regards to patient's elevated troponin, Cardiology was consulted. She was placed on appropriate medications for acute coronary syndrome. Patient ultimately underwent heart cath without any stentable lesions, and she will be maintained on medical management. She was continued on statin therapy and in addition will be placed on Plavix. Will follow up with Cardiology on an outpatient basis. She has been counseled regarding tobacco use. Pulmonology was consulted given patient's significant oxygen requirements. A CT scan of the chest also revealed a right upper lobe nodule for which there initially were plans to biopsy. But after further discussion with the patient, she states she did not want biopsy and was not interested in chemo and/or radiation if indeed the biopsy proved it was cancer. She states she has been told in the past this is likely malignancy, and she understands it will be terminable and does not want any treatment. Thus, biopsy was not done. Patient was placed on IV steroids in regards to her associated COPD exacerbation. She continued to have significant hypoxia, and after repeated discussion with patient, she informed me she was on six liters of oxygen at home prior to admission which she was not forthcoming with initially. We will discharge her back on her home oxygen, and I will supply a nebulizer. Patient is also significant deconditioned, but she is refusing subacute rehab. I will arrange home health if patient is agreeable for PT/OT. Patient will be discharged home today with medications as noted. DISCHARGE CONDITION Stable. DISCHARGE STATUS Discharge to home with home health if patient is agreeable. Unit #: [id number] #: [id number] Patient: ERIC VICK DISCHARGE MEDICATIONS 1. DuoNeb 3 mL q.6 hours p.r.n. for shortness of air. 2. Prednisone 10 mg tablets, 4 tablets for 3 days, then 3 tablets for 3 days, then 2 tablets for 3 days, then 1 tablet for 3 days, then discontinue. 3. Pulmicort nebulizer solution 0.5 mL inhaled b.i.d. 4. Coreg 25 mg p.o. b.i.d. 5. Lexapro 20 mg daily. 6. Norvasc 10 mg daily. 7. Lisinopril and hydrochlorothiazide 20/12.5 mg 1 tablet p.o. daily. 8. Crestor 20 mg daily. 9. Fosamax 70 mg p.o. weekly. 10. Aspirin 81 mg daily. 11. Augmentin 875 mg p.o. b.i.d. 12. Plavix 75 mg daily. 13. Protonix 40 mg daily. 14. Baclofen 10 mg p.o. t.i.d. p.r.n. for muscle spasms. 15. Levothyroxine 137 mcg p.o. daily. 16. Imdur-ER 30 mg daily. 17. Nitroglycerin 0.4 mg 1 tablet every 5 minutes p.r.n. for chest pain. 18. Vitamin B12 at 1000 mcg p.o. daily. 19. Oxygen 6 liters per nasal cannula continuously. DISCHARGE INSTRUCTIONS 1. Patient was instructed to refrain from any further tobacco use. 2. She can increase her activity as tolerated at home. 3. She can follow a heart-healthy diet and a low-salt diet. 4. In regards to diet consistency, patient should be placed on a dental soft diet with thin liquids. She should not use any straws and will need to be chin down with every swallow. Double swallow is also recommended. FOLLOWUP 1. Patient will follow up with her primary care provider, Dr. Tootie Hannah, in one to two weeks. 2. Patient will follow up with Dr. Cheatham in approximately three weeks. She is to call [phone] for appointment. Outpatient cardiac rehab has been arranged. Time spent on discharge today 40 minutes. Dictated by... Melisa Felder M.D. Grisel TD: 04/01/2017 18:29 JOB #: [id number] Unit #: [id number] #: [id number] Patient: ERIC VICK DISCHARGE SUMMARY Page 1 of 1 X Melisa Felder MD X DISCHARGE SUMMARY
--- NOTE | ~2017-03-23 | CR71 ---
[facility] A Service of [facility] RADIOLOGY TEXT RESULTS PATIENT: ERIC VICK LOCATION: [facility] [place] [facility] 5708-06 : 48 UNIT #: [id number] AGE: [address]: Gladis Kim MD SEX: F ORDER DR: [id number] [facility] [address] [facility] [place], [place] [address] [id number] I MR#: [id number] Acc #: [id number] NAME: ERIC VICK : 1950 SEX: F STUDY DATE/TIME: 03/23/2017 21:16 UNIT: [facility] [place] [facility] ROOM: [facility] STUDY DESCRIPTION: CR Chest Single View Attending Physician: Gladis Kim M.D. Ordering Physician: Ed Prabhjot Cartagena M.D. Primary Care Physician: Tootie Hannah M.D. MEDICAL IMAGING REPORT This report is preliminary unless electronic signature is present EXAM AP portable chest DATE 03/23/2017 HISTORY Shortness of breath with activity, weakness and hypotension since 03/23/2017. Fell. Additional history of hypertension, COPD. COMPARISON AP portable chest 01/22/2017 FINDINGS There is moderate but stable cardiac enlargement. Lungs appear mildly hyperinflated with chronic interstitial thickening. No acute airspace disease. Suspected old right rib fracture. Degenerative changes of the right shoulder. No pneumothorax or pleural effusion. IMPRESSION 1. Pulmonary hyperinflation, which may indicate underlying emphysematous change. 2. No acute chest findings. 3. Stable cardiomegaly. 4. Chronic-appearing right rib fracture. Dictated by... Tami Echevarria M.D. THIS IS AN ELECTRONICALLY VERIFIED REPORT Tami Echevarria M.D. at 03/24/2017 1:55 PM [facility] A Service of [facility] RADIOLOGY TEXT RESULTS PATIENT: ERIC VICK LOCATION: [facility] [place] [facility] 5708-06 : 48 UNIT #: [id number] AGE: [address]: Gladis Kim MD SEX: F ORDER DR: TD: 03/24/2017 11:16 JOB #: [id number] MEDICAL IMAGING REPORT Page 1 of 1 COPY
--- NOTE | ~2017-03-23 | CO ---
Unit #: [id number] #: [id number] Patient: ERIC VICK [id number] [address] [place], [place] [address] [id number] I MR#: [id number] NAME: ERIC VICK ROOM: 571 Age: 66 Sex: F Admission Date: 03/24/2017 : 1950 Attending Physician: Melisa Felder M.D. Primary Care Physician: Tootie Hannah M.D. Consultation Date: 03/24/2017 CONSULTATION REPORT REASON FOR CONSULTATION Elevated troponin. HISTORY OF PRESENT ILLNESS This is a 66-year-old female with a past medical history of diabetes mellitus, hypertension, hypothyroidism, COPD on home oxygen therapy, coronary artery disease with previous stent placement, hyperlipidemia, GERD. The patient is a poor historian. All information was obtained via speaking with the patient's sister, who was called on the phone as well as the chart and reviewed with the nursing staff. The patient presented to the emergency room on 03/23/2017, status post fall. Her sister states that she had been acting quite right. She was very drowsy and weak, and she fell. This prompted her to call EMS. The patient was brought into the emergency room for evaluation, was noted to be hypotensive with a blood pressure of 80/53, heart rate of 76, oxygen saturation 95% on 4 L nasal cannula. The patient was treated for rhabdomyolysis, initial CK was 1718. She had an EKG performed, which showed normal sinus rhythm with sinus arrhythmia at 71 beats per minute. Chest x-ray showed moderate stable cardiomegaly with underlying emphysema and a chronic right rib fracture. She also underwent CT scan of the head, which showed no acute abnormality or hemorrhage. It is notable the patient's BUN was elevated at 52 with a creatinine of 2.3, potassium was 4.9, and point of care troponin was noted to be 0.39. She was also noted to be positive for opiates on her urine drug screen. The patient was given 2 L of IV fluids in the emergency room and admitted for further evaluation. We were asked to see the patient today secondary to elevated troponin. Repeat troponin today was 0.97. At this time, the patient is drowsy. She is able to answer some questions, but again is a poor historian. She denies any complaints of chest pain. However, she is visibly short of breath and appears to be labored with the respirations with even minimal conversation. Lung sounds appear full. Stat portable chest x-ray has been ordered as well and stat arterial blood gas at this time. Fluid is visible, labored breathing. The patient does appear to be in acute CHF at this time. It is notable she had cardiac catheterization in 01/2009 at [facility]. Catheterization at that time revealed a normal left main, Unit #: [id number] #: [id number] Patient: ERIC VICK bilateral luminal irregularities of the LAD, 90% stenosis of the first diagonal branch which was a small vessel, mild luminal irregularities. The circumflex, stent to the RCA was patent and LVEF of 55% with mild inferior wall hypokinesis. At this time, I have ordered for 2 mg IV Bumex to be given now as well as Sylvester catheter insertion. This was explained to the patient. Her repeat chest x-ray was suggestive of volume overload. Her BNP was noted to be 585. We were asked evaluate further and treat for the above reasons. PAST MEDICAL HISTORY 1. Coronary artery disease with a stent to the right coronary artery in 2004. 2. Cardiac catheterization in 01/2009 revealed a normal left main, bilateral luminal irregularities of the LAD, 90% stenosis in the first diagonal branch which is small vessel, mild luminal irregularities. The circumflex, right coronary artery stent was patent, left ventricular ejection fraction 55%, mild inferior wall hypokinesis. 3. Hypertension. 4. Hyperlipidemia. 5. Hypothyroidism. 6. COPD on chronic oxygen therapy. 7. History of migraine headaches. 8. Current tobacco user. 9. GERD with a history of Adonis erosions. 10. 2D echocardiogram in 2009 showed LVEF is 60%, mild MR and mild TR. 11. In 2009, Lexiscan Cardiolite showed no stress-induced ischemia. 12. Depression. 13. Chronic back pain. PAST SURGICAL HISTORY 1. Hysterectomy. 2. Cardiac catheterization with a stent to the right coronary in 2004. 3. Right wrist surgery x2. 4. EGD in the past with Adonis erosions, hiatal hernia, and gastritis that was in 2016. HOME MEDICATIONS 1. Fosamax 70 mg p.o. weekly. 2. Toprol-XL 50 mg p.o. daily. 3. NicoDerm CQ 21 mg topical daily. 4. Gabapentin 300 mg p.o. t.i.d. 5. Trazodone 100 mg p.o. q.h.s. 6. Protonix 40 mg p.o. daily. 7. Vitamin B12, 1000 mcg p.o. 8. Baclofen 10 mg p.o. t.i.d. 9. Imdur ER 30 mg p.o. daily. 10. Levothyroxine 137 mcg p.o. daily. 11. Lisinopril 30 mg p.o. daily. 12. Lexapro 20 mg p.o. daily. 13. Nitroglycerin sublingual 0.4 mg p.r.n. 14. Crestor 20 mg p.o. daily. ALLERGIES No known drug allergies. SOCIAL HISTORY The patient lives with her sister. She does smoke a half a pack of cigarettes a day for the last 30 to 40 years. She states she quit 3 days Unit #: [id number] #: [id number] Patient: ERIC VICK ago. She denies any illicit drugs. However, urine drug screen was positive for opiates. Denies alcohol. FAMILY HISTORY Unknown at this time. REVIEW OF SYSTEMS Unable to be obtained secondary to the patient is a poor historian. PHYSICAL EXAMINATION GENERAL: This is a 66-year-old female who does appear to be in some mild respiratory distress. Labored breathing. Denies any chest pain at present. She is a poor historian and there is currently no family present at bedside. VITAL SIGNS: Temperature 98.9, respiratory rate 22 to 24, pulse is 93, blood pressure 128/88 to 151/73. BMI is 24. HEENT: Head is atraumatic and normocephalic. Pupils are equal and round. Mucous membranes are dry. NECK: Trachea is midline. No lymphadenopathy. No thyromegaly. Normal carotid upstrokes. Positive JVD. CARDIOVASCULAR: S1 and S2. Regular rate and rhythm. No murmurs, gallops, or rubs. LUNGS: Significant gurgling as noted upon exam. The patient appears full with volume and fluid, is currently on oxygen at 6 L Oxymizer. Visibly labored and tachypneic. ABDOMEN: Soft, nontender, nondistended. Bowel sounds are present. EXTREMITIES: Pulses are palpable, but weak. No clubbing or cyanosis. Trace pedal edema. NEUROLOGIC: She is drowsy, poor historian, moves all extremities equally, follows commands. DIAGNOSTIC STUDIES LABORATORY RESULTS: Sodium 143, potassium 4.0, chloride 116, CO2 of 19, BUN 36, creatinine 0.9, glucose 106, AST 129, ALT 224, ALP 60. Initial CK on admission was 1718, repeat today is 836. Troponin point of care was 0.39, repeat troponin is 0.97. Hemoglobin 9.6, hematocrit 30.6, WBC 6.3, and platelet count 262. Stat BNP ordered today was 585. IMAGING STUDIES: Initial x-ray showed moderate stable cardiomegaly with emphysema, chronic right rib fracture. CT of the head showed no acute hemorrhage or acute intracranial abnormality, but this was a motion limited exam. Currently has a repeat chest x-ray, which is pending. IMPRESSION 1. Acute non-ST elevated myocardial infarction. 2. Acute kidney injury, which is now resolved. 3. Rhabdomyolysis, CKs are trending down, statin has been on hold. 4. History of coronary artery disease with a stent in the past. Cardiac cath in 2006 showed left main normal, 90% stenosis in the first diagonal which was a small branch, RCA stent was patent. 5. LVEF of 60%, mild MR, mild TR per 2D echo in 2009. 6. Hypertension. 7. Hyperlipidemia. 8. Diabetes mellitus. 9. Chronic obstructive pulmonary disease, on home oxygen therapy. Unit #: [id number] #: [id number] Patient: ERIC VICK 10. Anxiety and depression. PLAN We have been asked to see the patient secondary to elevated troponin. Her initial troponin was 0.39, repeat today is 0.97. The patient does appear to be in acute fluid overload. I have given her a stat dose of IV Bumex 2 mg x1 and thus far she has had a good diuresis effect with that. Sylvester catheter has also been inserted. Her chest x-ray has been read reviewed and is consistent with volume overload. The patient has ruled in for non-ST elevated TN. We will start her on Lovenox 1 mg/kg per subcu q.12 h. first dose to be given now as well as aspirin 81 mg p.o. daily. We will check a lipid profile in the a.m. as well as a repeat CBC, BMP, and magnesium level. We will continue to trend cardiac enzymes and repeat EKG in the a.m. Repeat EKG was ordered while she is on the floor, which shows normal sinus rhythm, rate of 98 beats per minute, nonspecific ST-T wave abnormalities noted, QTc interval 411 milliseconds, no acute ischemic changes noted. The patient will be continued on her Toprol-XL 50 mg p.o. daily with parameters to hold for systolic less than 100. She will also be started on nitroglycerin paste 1 inch topical q.6. and we will discontinue her current IV fluids and start her also on daily Lasix dosing. We will need to closely monitor renal function. She will also have a 2D echocardiogram in the a.m. The patient will most likely need repeat left heart catheterization once her pulmonary status is improved. All of this was discussed with both the patient and her sister via telephone. Cardiac worm farm laborer has been notified of the patient's potential cath on Sunday with Dr. Lee. Further recommendations pending Dr. Madrid' assessment today. Dictated by... Vandana Alicea A.P.R.N. for Felipe Madrid M.D. LMW/modl TD: 03/25/2017 13:30 JOB #: [id number] CONSULTATION REPORT Page 1 of 1 X Vandana Alicea APRN X CONSULTATION REPORT
--- NOTE | ~2017-03-23 | DS ---
Unit #: [id number] #: [id number] Patient: ERIC VICK [id number] [address] [address] [id number] I MR#: [id number] NAME: ERIC VICK ROOM: 57 Age: 66 Sex: F Admission Date: 03/24/2017 : 1950 Discharge Date: 03/30/2017 Attending Physician: Melisa Felder M.D. Primary Care Physician: Tootie Hannah M.D. DISCHARGE SUMMARY ADDENDUM DISCHARGE MEDICATION 20. She will also go home on Perforomist nebulizer solution 20 mcg inhaled q.12 h. Dictated by... Melisa Felder M.D. KARLA/donnie TD: 04/01/2017 18:40 JOB #: [id number] DISCHARGE SUMMARY Page 1 of 1 X Melisa Felder MD X DISCHARGE SUMMARY
--- NOTE | ~2017-03-23 | EKG ---
PATIENT: ERIC VICK UNIT #: [id number] Ventricular Rate: 75 BPM Atrial Rate: 75 BPM P-R Interval: 132 ms QRS Duration: 90 ms Q-T Interval: 396 ms QTC Calculation(Bezet): 442 ms P [place]: 72 degrees Calculated R [place]: 21 degrees Calculated T [place]: -18 degrees Diagnosis Line: Normal sinus rhythm Diagnosis Line: ST abnormality, possible digitalis effect Diagnosis Line: Abnormal ECG Diagnosis Line: When compared with ECG of 24-MAR-2017 15:13, Diagnosis Line: (unconfirmed) Diagnosis Line: T wave inversion no longer evident in Lateral Diagnosis Line: leads Diagnosis Line: Confirmed by TOMAS CLAYTON MD ([id number]) on 03/25/2017 Diagnosis Line: 6:02:46 PM INTERPRETING MD: MATILDE TRAVIS
--- NOTE | ~2017-03-23 | CT71 ---
[facility] A Service of [facility] RADIOLOGY TEXT RESULTS PATIENT: ERIC VICK LOCATION: [facility] [id number] : 48 UNIT #: [id number] AGE: [address]: Gladis Kim MD SEX: F ORDER DR: [id number] [facility] [address] [place], [place] [address] [id number] MR#: [id number] #: [id number] NAME: ERIC VICK : 1950 SEX: F STUDY DATE/TIME: 03/23/2017 22:39 UNIT: [facility] ROOM: [facility] STUDY DESCRIPTION: CT Head Wo Contrast Attending Physician: Gladis Kim M.D. Ordering Physician: Jamel Zambrano M.D. Primary Care Physician: Tootie Hannah M.D. MEDICAL IMAGING REPORT This report is preliminary unless electronic signature is present EXAM CT head, noncontrast, 03/23/2017. HISTORY 66-year-old female in the ED after a head injury. Fell at home today. Confusion/mental status changes are noted. The patient complains of head discomfort. TECHNIQUE CT examination of the head without IV contrast. This CT exam was performed with one or more of the following radiation dose reduction techniques: automatic exposure control, adjustment of mA and/or kV according to patient size, and iterative reconstruction. FINDINGS The images are significantly degraded by patient motion artifact. The patient moved throughout the examination reportedly secondary to her mental status changes. Portions of the exam were repeated and both sets of images are reviewed. No acute intracranial abnormality is identified and there is no visible skull fracture. No evidence of intracranial hemorrhage, cerebral edema, mass effect or additional abnormality. No significant change since 03/07/2016. IMPRESSION 1. Motion-limited examination. 2. The examination is grossly negative. No evidence of acute intracranial abnormality. No visible skull fracture. [facility] A Service [facility] RADIOLOGY TEXT RESULTS PATIENT: ERIC VICK LOCATION: [facility] : 48 UNIT #: [id number] AGE: [address]: Gladis Kim MD SEX: F ORDER DR: Dictated by... Nico Strange M.D. THIS IS AN ELECTRONICALLY VERIFIED REPORT Nico Strange M.D. at 03/24/2017 3:53 PM RGW/chantale TD: 03/24/2017 11:42 JOB #: [id number] MEDICAL IMAGING REPORT Page 1 of 1 COPY
[2017-03-23 21:12] LABS: URINE SOURCE CLEAN CATCH
[2017-03-23 21:26] LABS: URINE APPEARANCE CLOUDY; URINE BLOOD TRACE (NEG); URINE COLOR DK YELLOW; URINE GLUCOSE NEG (NEG); URINE KETONE NEG (NEG); URINE LEUKOCYTE ESTERASE TRACE (NEG); URINE NITRATE NEG (NEG); URINE PROTEIN TRACE (NEG); URINE SPECIFIC GRAVITY 1.023 (1.003-1.035)
[2017-03-23 21:28] LABS: URBCS1 AUWI 0-2 /[HPF] (0-2); URINE BACTERIA AUWI NEG (NEGATIVE); URINE SQUAMOUS EPITHELIAL CELL OCC /[HPF]
[2017-03-23 21:29] LABS: AMPHETAMINE NEG (NEG); BARBITURATES NEG (NEG); BENZODIAZEPINES NEG (NEG); COCAINE NEG (NEG); MARIJUANA NEG (NEG); OPIATES POS (NEG); TRICYCLIC ANTIDEPRESSANTS NEG (NEG); U METHADONE NEG (NEG)
[2017-03-23 21:56] LABS: CULTURE INDICATED? NO; URINE BILIRUBIN NEG (NEG); URINE GRANULAR CAST 0-2 /[HPF]
[2017-03-23 22:25] LABS: BASOPHIL# 0.1 X10e3 (0-0.3); BASOPHIL% 0.5 % (0-2.5); EOSINOPHIL% 0.2 % (0.0-7.0); HEMATOCRIT 32.6 % (35.0-45.0); HEMOGLOBIN 10.2 gm/dL (12.0-16.0); LYMPHOCYTE# 1.1 X10e3 (1.0-3.5); LYMPHOCYTE% 10.6 % (17.0-45.0); MEAN CELL VOLUME 83.5 FL (83-96); MEAN CORPUSCULAR HGB CONC 31.2 g/dL (30-36); MEAN PLATELET VOLUME 8.4 FL (6.5-11.5); MONOCYTE# 1.1 X10e3 (0-1.0); MONOCYTE% 10.7 % (3.0-12.0); PLATELET COUNT 284 X10e3 (140-420); RED BLOOD COUNT 3.91 X10e (3.90-5.30); RED CELL DISTRIBUTION WIDTH 19.6 % (11.0-15.5); WHITE BLOOD COUNT 10.2 X10e3 (4.0-10.5)
[2017-03-23 22:27] LABS: POC - TROPONIN 0.45 ng/mL (<=0.05)
[2017-03-23 22:28] LABS: DIFF IND NO
[2017-03-23 22:46] LABS: INR 1.1; PARTIAL THROMBOPLASTIN TIME 26.9 SECONDS (23.5-31.3); PROTHROMBIN TIME (PATIENT) 11.4 SECONDS (10.0-11.7)
[2017-03-23 22:47] LABS: ALBUMIN SERUM 3.2 g/dL (3.5-5.0); BILIRUBIN, DIRECT 0.2 mg/dL (0.0-0.2); BILIRUBIN,INDIRECT 0.6 mg/dL (0.0-0.9); BILIRUBIN,TOTAL 0.8 mg/dL (0.2-2.0); BUN/CREATININE RATIO 22.6; CALCIUM SERUM 8.3 mg/dL (8.4-10.2); CREATININE SERUM 2.3 mg/dL (0.6-1.4); GLOM FILT RATE Estimated 21.1 mL/min (>60); POTASSIUM 4.2 mmol/L (3.5-5.1); PROTEIN TOTAL SERUM 6.1 g/dL (6.0-8.3)
[2017-03-24 00:05] LABS: POC - CKMB 20.4 ng/mL (0.0-7.9); POC - TROPONIN 0.39 ng/mL (<=0.05)
[2017-03-24 12:09] LABS: BASOPHIL% 0.7 % (0-2.5); EOSINOPHIL% 0.2 % (0.0-7.0); HEMATOCRIT 30.6 % (35.0-45.0); HEMOGLOBIN 9.6 gm/dL (12.0-16.0); LYMPHOCYTE# 0.5 X10e3 (1.0-3.5); LYMPHOCYTE% 8.7 % (17.0-45.0); MEAN CELL VOLUME 83.4 FL (83-96); MEAN CORPUSCULAR HGB CONC 31.2 g/dL (30-36); MONOCYTE# 0.9 X10e3 (0-1.0); MONOCYTE% 14.5 % (3.0-12.0); NEUTROPHIL# 4.8 X10e3 (1.5-7.1); NEUTROPHIL% 75.9 % (40-75); PLATELET COUNT 262 X10e3 (140-420); RED BLOOD COUNT 3.67 X10e (3.90-5.30); RED CELL DISTRIBUTION WIDTH 19.7 % (11.0-15.5); WHITE BLOOD COUNT 6.3 X10e3 (4.0-10.5)
[2017-03-24 12:14] LABS: DIFF IND NO
[2017-03-24 12:44] LABS: BILIRUBIN,TOTAL 0.6 mg/dL (0.2-2.0); CALCIUM SERUM 8.5 mg/dL (8.4-10.2); CREATININE SERUM 0.9 mg/dL (0.6-1.4); GLOM FILT RATE Estimated 65.7 mL/min (>60); PROTEIN TOTAL SERUM 5.5 g/dL (6.0-8.3)
[2017-03-24 14:39] LABS: ARTERIAL BLD GAS O2 SATURATION 89.3 % (90.0-100.0); ARTERIAL BLOOD GAS ALLEN TEST N; ARTERIAL BLOOD GAS ART SITE LEFT RADIAL; ARTERIAL BLOOD GAS CARBOXY HB 0.6 %sat (0.0-9.0); ARTERIAL BLOOD GAS DELIVERY OXYMIZER; ARTERIAL BLOOD GAS HCO3 21.5 mmol/L; ARTERIAL BLOOD GAS MET HB 1.2 %sat (0.0-2.0); ARTERIAL BLOOD GAS PCO2 42.5 mmHg (35.0-45.0); ARTERIAL BLOOD GAS PO2 65.1 mmHg (80.0-100); ARTERIAL BLOOD GAS pH 7.313 (7.350-7.450); ARTERIAL DRAW? YES
[2017-03-24 17:28] LABS: %MB 3.5 % (0.0-4.0); MB 25.1 ng/ml
[2017-03-24 18:34] LABS: ARTERIAL BLD GAS O2 SATURATION 96.9 % (90.0-100.0); ARTERIAL BLOOD GAS CARBOXY HB 0.2 %sat (0.0-9.0); ARTERIAL BLOOD GAS HCO3 24.5 mmol/L; ARTERIAL BLOOD GAS MET HB 1.2 %sat (0.0-2.0); ARTERIAL BLOOD GAS PCO2 40.7 mmHg (35.0-45.0); ARTERIAL BLOOD GAS pH 7.388 (7.350-7.450)
[2017-03-24 18:35] LABS: ARTERIAL BLOOD GAS ALLEN TEST NORMAL; ARTERIAL BLOOD GAS ART SITE RIGHT RADIAL; ARTERIAL DRAW? YES
[2017-03-24 21:21] LABS: %MB 3.3 % (0.0-4.0); MB 18.4 ng/ml
[2017-03-25 04:14] LABS: ARTERIAL BLD GAS O2 SATURATION 95.6 % (90.0-100.0); ARTERIAL BLOOD GAS CARBOXY HB 0.4 %sat (0.0-9.0); ARTERIAL BLOOD GAS HCO3 29.1 mmol/L; ARTERIAL BLOOD GAS MET HB 1.7 %sat (0.0-2.0); ARTERIAL BLOOD GAS PCO2 46.2 mmHg (35.0-45.0); ARTERIAL BLOOD GAS pH 7.407 (7.350-7.450)
[2017-03-25 04:15] LABS: ARTERIAL BLOOD GAS ALLEN TEST NORMAL; ARTERIAL BLOOD GAS ART SITE RIGHT RADIAL; ARTERIAL DRAW? YES
[2017-03-25 07:07] LABS: BASOPHIL% 0.2 % (0-2.5); HEMATOCRIT 30.7 % (35.0-45.0); LYMPHOCYTE# 0.5 X10e3 (1.0-3.5); LYMPHOCYTE% 9.2 % (17.0-45.0); MEAN CELL VOLUME 80.8 FL (83-96); MEAN CORPUSCULAR HEMOGLOBIN 26.2 PG (28-34); MEAN CORPUSCULAR HGB CONC 32.5 g/dL (30-36); MEAN PLATELET VOLUME 8.2 FL (6.5-11.5); MONOCYTE# 0.4 X10e3 (0-1.0); MONOCYTE% 7.6 % (3.0-12.0); NEUTROPHIL# 4.3 X10e3 (1.5-7.1); PLATELET COUNT 277 X10e3 (140-420); RED CELL DISTRIBUTION WIDTH 19.3 % (11.0-15.5); WHITE BLOOD COUNT 5.2 X10e3 (4.0-10.5)
[2017-03-25 07:09] LABS: DIFF IND YES
[2017-03-25 07:38] LABS: ALBUMIN SERUM 3.2 g/dL (3.5-5.0); BILIRUBIN,TOTAL 0.7 mg/dL (0.2-2.0); BUN/CREATININE RATIO 32.85; CREATININE SERUM 0.7 mg/dL (0.6-1.4); POTASSIUM 3.3 mmol/L (3.5-5.1); PROTEIN TOTAL SERUM 6.7 g/dL (6.0-8.3)
[2017-03-25 07:40] LABS: ANISOCYTOSIS MOD; NUCLEATED RED BLOOD CELL 2 /100 (0); PLATELET ESTIMATE NORMAL (NORMAL)
[2017-03-25 07:44] LABS: MAGNESIUM 1.1 mg/dL (1.6-3.0)
[2017-03-25 13:36] LABS: %MB 4.8 % (0.0-4.0); MB 13.4 ng/ml
[2017-03-25 17:54] LABS: POTASSIUM 3.8 mmol/L (3.5-5.1)
[2017-03-26 07:39] LABS: HEMATOCRIT 34.3 % (35.0-45.0); MEAN CELL VOLUME 80.8 FL (83-96); MEAN CORPUSCULAR HGB CONC 32.2 g/dL (30-36); MEAN PLATELET VOLUME 8.4 FL (6.5-11.5); RED BLOOD COUNT 4.25 X10e (3.90-5.30); RED CELL DISTRIBUTION WIDTH 19.6 % (11.0-15.5)
[2017-03-26 07:41] LABS: WHITE BLOOD COUNT 8.3 X10e3 (4.0-10.5)
[2017-03-26 07:46] LABS: PROTHROMBIN TIME (PATIENT) 10.5 SECONDS (10.0-11.7)
[2017-03-26 08:18] LABS: CALCIUM SERUM 9.8 mg/dL (8.4-10.2); CREATININE SERUM 0.6 mg/dL (0.6-1.4); GLOM FILT RATE Estimated 93.7 mL/min (>60); MAGNESIUM 1.7 mg/dL (1.6-3.0); POTASSIUM 3.8 mmol/L (3.5-5.1)
[2017-03-27 07:11] LABS: BUN/CREATININE RATIO 48.33; CALCIUM SERUM 9.1 mg/dL (8.4-10.2); CREATININE SERUM 0.6 mg/dL (0.6-1.4); GLOM FILT RATE Estimated 93.7 mL/min (>60); POTASSIUM 4.1 mmol/L (3.5-5.1)
[2017-03-28 09:35] LABS: MAGNESIUM 1.7 mg/dL (1.6-3.0); POTASSIUM 3.8 mmol/L (3.5-5.1)
[2017-03-30 07:14] LABS: CALCIUM SERUM 9.9 mg/dL (8.4-10.2); CREATININE SERUM 0.5 mg/dL (0.6-1.4); GLOM FILT RATE Estimated 99.5 mL/min (>60); MAGNESIUM 1.6 mg/dL (1.6-3.0); POTASSIUM 4.3 mmol/L (3.5-5.1)
[2017-03-30] MEDS ORDERED: COMBIVENT U/D3 M2 INH (13:38)
[2017-03-30] MEDS ORDERED: CARVEDILOL25 MG PO (13:39)
[2017-03-30] MEDS ORDERED: CLOPIDOGREL75 MG PO (13:40)
[2017-03-30] MEDS ORDERED: NORVASC10 MG PO (13:40)
[2017-03-30] MEDS ORDERED: PERFOROMIS20 MCG/2 M INH (13:42)
[2017-03-30] MEDS ORDERED: PULMICORT1 MG/2 ML INH (13:42)
[2017-03-30] MEDS ORDERED: PREDNISONE10 MG PO (13:43)
[2017-03-30] MEDS ORDERED: ZESTORETIC 20-1 EAC1 PO (13:43)
[2017-03-30] MEDS ORDERED: AUGMENTIN PO (13:44)
[2017-03-30] MEDS ORDERED: ASPIRIN81 M2 PO (13:47)
== END 2017-03-30 16:52 | disposition home or self-care (01) | DRG 280 ==
LOC: CED 20:33 → CEDOF 03-24 00:30 → C5C 03-24 00:30
PROVIDERS: Emergency Medicine; Internal Medicine; Nurse Practitioner
PROC: B24BZZZ Ultrasonography of Heart with Aorta (ICD-10-PCS; 2017-03-25)
PROC: 4A023N7 Measurement of Cardiac Sampling and Pressure, Left Heart, Percutaneous Approach (ICD-10-PCS; principal; 2017-03-26)
PROC: B215YZZ Fluoroscopy of Left Heart using Other Contrast (ICD-10-PCS; 2017-03-26)
PROC: B211YZZ Fluoroscopy of Multiple Coronary Arteries using Other Contrast (ICD-10-PCS; 2017-03-26)
DX: I21.4 Non-ST elevation (NSTEMI) myocardial infarction (principal); J96.21 Acute and chronic respiratory failure with hypoxia; N17.9 Acute kidney failure, unspecified; M62.82 Rhabdomyolysis; I11.0 Hypertensive heart disease with heart failure; I95.9 Hypotension, unspecified; I50.32 Chronic diastolic (congestive) heart failure; E44.1 Mild protein-calorie malnutrition; J96.22 Acute and chronic respiratory failure with hypercapnia; J44.1 Chronic obstructive pulmonary disease with (acute) exacerbation; J40 Bronchitis, not specified as acute or chronic; B96.3 Hemophilus influenzae [H. influenzae] as the cause of diseases classified elsewhere; R91.1 Solitary pulmonary nodule; F17.200 Nicotine dependence, unspecified, uncomplicated; E11.9 Type 2 diabetes mellitus without complications; I25.10 Atherosclerotic heart disease of native coronary artery without angina pectoris; D64.9 Anemia, unspecified; E78.5 Hyperlipidemia, unspecified; R13.12 Dysphagia, oropharyngeal phase; E03.9 Hypothyroidism, unspecified; Z68.24 Body mass index [BMI] 24.0-24.9, adult; K21.9 Gastro-esophageal reflux disease without esophagitis; F41.9 Anxiety disorder, unspecified; F32.9 Major depressive disorder, single episode, unspecified; Z90.710 Acquired absence of both cervix and uterus
CPT/HCPCS: 36415; 36600; 70450; 71010; 71250; 74230; 80048; 80053; 80061; 80076; 80307; 81003; 82140; 82550; 82553; 82803; 82947; 83036; 83605; 83735; 83880; 84132; 84443; 84484; 85025; 85027; 85610; 85730; 87040; 87070; 87205; 92526; 92610; 92611; 93005; 93306; 94640; 94660; 94760; 96360; 96361; 97110; 97116; 97162; 97165; 97530; 97535; 99152; 99153; 99285; C1769; G0480; G8978-GP; G8979-GP; G8987-GO; G8988-GO; G8996-GN; G8997-GN; J0360; J1644; J1650; J1815; J1940; J2250; J2920; J2930; J3010; J3475